=== PATIENT | female | born 1940 | race African-American/Black ===

== ENCOUNTER 2024-12-04 10:58 | Emergency (ER) | payer BC, OTHER ==
[~2024-12-04] VITALS: Ht 152.4 cm; Wt 70.0 kg
[2024-12-04 11:11] VITALS: TEMP 98.3
[2024-12-04 11:30] VITALS: BP 162/75; PULSE 103; RESP 16; O2SAT 99
--- NOTE | 2024-12-04 13:01 | ED.PDOC ---
Musculoskeletal HPI Comments 84-year-old brought in by son with a chief complaint of bilateral knee pain. Patient reports she has a history of bilateral knee arthritis and gets steroid injections every three months. PCP Jeevan Lewis in [place]. Last injection over a year ago. Injections were performed in [place] by Sam Parker at [facility] Able to bear weight on the leg Denies trauma to the knee or recent fall Denies skin color changes around the knee Denies masses around the knee Denies popping/locking/giving out of the knee Denies fever chills night sweats nausea vomiting Denies previous surgeries to the knee nor significant injury Chief Complaint: Lower Extremity Time Seen by MD: 11:25 Reviewed Notes: Nurses Notes, Medications, Allergies Home Meds Active Scripts Diclofenac Sodium (Topical) (Voltaren Arthritis Pain) 1 % Gel, 2 GRAMS EX TID for 30 Days, #60 GRAMS 0 Refills Prov:[facility] 12/04/24 Information Source: Patient Mode of Arrival: Ambulatory All Other Systems: Reviewed and Negative (Per HPI) Physical Exam General Appearance: No Apparent Distress, Normal HEENT: Normal ENT Inspection, Pharynx Normal, TMs Normal Neck: Full Range of Motion, Non-Tender, Normal, Normal Inspection Respiratory: Chest Non-Tender, Lungs Clear, No Accessory Muscle Use, No Respiratory Distress, Normal Breath Sounds Cardiovascular: No Murmur, No Gallop, Regular Rate/Rhythm Breast Exam: Deferred Gastrointestinal: No Organomegaly, Non Tender, No Pulsatile Mass, Normal Bowel Sounds, Soft Genitalia: Deferred Pelvic: Deferred Rectal: Deferred Extremities: No calf tenderness, Normal capillary refill, Normal inspection, Normal range of motion, Non-tender, No pedal edema Musculoskeletal : Location: Bilateral Extremity Location: Knee (No gross abnormality on inspection. Crepitus with flexioin/extension. No TTP.) Apperance: Normal Neurologic: Alert, No Motor Deficits, Normal Affect, No Sensory Deficits Cerebellar Function: Normal Reflexes: Normal Skin: Dry, Normal Color, Warm Lymphatic: No Adenopathy Was a procedure done? Was a procedure done?: Yes Sedation Sedation?: No Other Procedure Procedure Bilateral knee Injection Indication Arthritis Anesthetic Lidocaine 1% Prep Alcohol swab Success Y Informed consent obtained: Yes Risks, benefits, and alternati: Yes Differential Diagnosis EXT Differential Diagnosis: Arthritis X-Ray, Labs, Meds, VS Vital Signs Date Time Temp Pulse Resp B/P (MAP) Pulse Ox O2 Delivery O2 Flow Rate FiO2 12/04/24 11:30 98.3 103 16 162/75 (104) 99 12/04/24 11:11 98.3 103 16 162/75 (104) 99 98.3 12/04/24 11:11 103 16 99 Room Air X-Ray, Labs, Meds, VS Comment X-ray of the knee ordered. X-ray interpreted by radiologist and reviewed by me Patient was also informed that we recommend against routine use of the intra articular glucocorticoid injections for knee pain. Patient was informed that we limit the use of intra-articular injections to patients with moderate to severe pain and to have failed other treatment options and who are seeking short-term pain relief. Patient was also informed that this procedure is not routinely recommended in clinical practice and patient should not receive multiple nor repetitive injections. Patient was also informed that serial injections like every 3 months are discouraged due to potential negative effects on the progression of cartilage damage in the knee osteoarthritis patient's Risks and benefits of steroid injections were discussed with patient and patient gave verbal consent to the procedure. Right and Left knee lateral approach The patient's right knee was prepped in the usual sterile fashion using alcohol and iodine. A 25-gauge, 1-1/2 inch needle into the knee joint using the lateral approach. Through the needle I injected a solution containing 1 cc 40 mg of Kenalog and 4 cc of 1% lidocaine. The needle was removed and a sterile dressing (Band-Aid) was applied patient tolerated procedure well Voltaren gel as needed for the pain Recommend light walking under the sun for 30 minutes a day Avoiding running jogging high-impact activities Stretch as tolerated Ice 3x/day for 5 minutes Wear knee brace for stability as needed, elevate leg swelling aggravated Time of 1ST Reevaluation: 13:45 Reevaluation 1ST: Improved Patient Education/Counseling: Diagnosis, Treatment Family Education/Counseling: Diagnosis, Treatment Departure 1 Departure Time of Disposition: 13:57 Impression: Primary Impression: Arthritis of knee Disposition: HOME / SELF CARE / HOMELESS Condition: Stable e-Prescriptions Diclofenac Sodium (Topical) (Voltaren Arthritis Pain) 1 % Gel 2 GRAMS EX TID for 30 Days, #60 GRAMS 0 Refills Prov: [facility] 12/04/24 Critical Care Note Critical Care Time?: No Stability Stability form required: No Heart Score Heart Score: Heart Score Response (Comments) Value History N/A 0 EKG N/A 0 Age N/A 0 Risk Factors N/A 0 Troponin N/A 0 Total 0 G[facility]IA [facility] NP Dec 04, 2024 13:01
--- NOTE | 2024-12-04 13:23 | DVH ---
CLINICAL INDICATION: Pain TECHNIQUE: 4 radiographic views of the right knee were obtained. Comparison: None FINDINGS/IMPRESSION: There is no evidence of acute fracture or dislocation. Severe tricompartmental knee joint osteoarthrosis. There is no radiopaque foreign body.
--- NOTE | 2024-12-04 13:23 | DVH ---
CLINICAL INDICATION: r/o arthritis pain TECHNIQUE: 4 radiographic views of the left knee were obtained. Comparison: None FINDINGS/IMPRESSION: There is no evidence of acute fracture or dislocation. Severe tricompartmental knee joint osteoarthrosis.
[2024-12-04] MEDS: TRIAMCINOLONE 40MG/ML 1ML VIAL IX ONE (13:39)
[2024-12-04] MEDS ORDERED: DICL1GEL59 EX (13:58)
== END 2024-12-04 14:02 | disposition home or self-care (01) ==
LOC: ER 11:00
DX: M17.0 Bilateral primary osteoarthritis of knee (principal)
CPT/HCPCS: 20610; 73564; 99283; J3301